=== PATIENT | female | born 1930 | race Caucasian/White ===

== ENCOUNTER → 2017-08-05 | Outpatient (CLI) | payer BC ==
[~2017-08-05] MED LIST: B-COCAP2 PO; CYAN10005 PO; GLCSUNK; OMEG10007 PO; PRLSR20 PO; SIMV20TA2 PO
--- NOTE | 2017-08-05 15:18 | MAMMOGRAPHY REPORT ---
BILATERAL DIGITAL SCREENING MAMMOGRAM WITH CAD: 08/05/2017 CLINICAL HISTORY: Routine screening. Patient has no complaints. TECHNIQUE: Bilateral CC, MLO and repeat right CC views were obtained. Current study was also evaluat ed with a Computer Aided Detection (CAD) system. COMPARISON: Comparison is made to exams dated: 03/28/2016 mammogram, 02/01/2015 mammogram, 10/29/2012 ma mmogram, 08/07/2011 mammogram, 05/24/2010 mammogram, and 11/16/2009 ultrasound - [facility] enter. BREAST COMPOSITION: The tissue of both breasts is heterogeneously dense, which may obscure small mas ses. FINDINGS: There is a stable ribbon-shaped biopsy marker clip in the left upper outer quadrant. Scatt ered and grouped round and punctate microcalcifications are stable compared to prior mammograms. The re are minimal vascular calcifications in the breasts. No new suspicious mass, architectural distort ion or cluster of microcalcifications is seen. IMPRESSION: ACR BI-RADS CATEGORY 1: NEGATIVE There is no mammographic evidence of malignancy. A 1 year screening mammogram is recommended. The pa tient will receive written notification of the results. Approximately 10% of breast cancers are not detected with mammography. A negative mammographic report should not delay biopsy if a clinically suggestive mass is present. Scarlett Chin M.D. ay/:08/05/2017 13:45:23 Residential Worker: Jenni GORDON (R)([place]), [facility] letter sent: Normal 1/2 BI-RADS Code: ACR BI-RADS Category 1: Negative
== END | disposition home or self-care (01) ==
LOC: C.MAMM 13:02
PROVIDERS: ATTEND Family Medicine
DX: Z12.31 Encounter for screening mammogram for malignant neoplasm of breast (principal)